=== PATIENT | male | born 1935 | race Caucasian/White ===

== ENCOUNTER 2023-07-24 08:54 | Outpatient (RCR) | payer MEDICARE, OTHER, SELFPAY ==
[2023-07-24 09:09] VITALS: BP 127/35; PULSE 72; RESP 18; TEMP 36.8; BMI 29.9
--- NOTE | 2023-07-24 12:01 | HP.PCM_ITS ---
History of Present Illness Date of Service: 07/24/23 Chief Complaint: Follow-up on buttocks bilateral redness and a small open area in the coccyx area. History of Wound: 88-year-old white male who has history of Alzheimer's. 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 She has been taking care of it with [employer]. It has not worked really well except because it is too drying. Basically hardly any it is about the size of a pea eraser head that is open and it is just surface so we will have her use the Aquacel cell extra and continue with A&D ointments to the adjoining areas [facility] Home Medications ascorbic acid (vitamin C) 500 mg tablet (C-500) 500 mg PO DAILY 07/24/23 [History Last Taken Unknown] aspirin 81 mg chewable tablet 1 tab PO DAILY 07/24/23 [History Last Taken Unknown] cholecalciferol (vitamin D3) 125 mcg (5,000 unit) tablet 125 mcg PO DAILY 07/24/23 [History Last Taken Unknown] donepezil 10 mg tablet (Aricept) 10 mg PO QHS 07/24/23 [History Last Taken Unknown] furosemide 20 mg tablet 20 mg PO DAILY PRN edema 07/24/23 [History Last Taken Unknown] hydrochlorothiazide 12.5 mg capsule 12.5 mg PO DAILY 07/24/23 [History Last Taken Unknown] insulin glargine 100 unit-lixisenatide 33 mcg/mL subcutaneous pen (Soliqua 100/33) 42 unit subcut DAILY 07/24/23 [History Last Taken Unknown] isosorbide mononitrate 30 mg tablet,extended release 24 hr 30 mg PO DAILY 07/24/23 [History Last Taken Unknown] levothyroxine 112 mcg capsule 112 mcg PO DAILY 07/24/23 [History Last Taken Unknown] lisinopril 20 mg tablet 20 mg PO DAILY 07/24/23 [History Last Taken Unknown] memantine 5 mg tablet 5 mg PO DAILY 07/24/23 [History Last Taken Unknown] pravastatin 40 mg tablet 40 mg PO DAILY 07/24/23 [History Last Taken Unknown] quetiapine 50 mg tablet 50 mg PO QHS 07/24/23 [History Last Taken Unknown] sertraline 50 mg tablet 50 mg PO DAILY 07/24/23 [History Last Taken Unknown] tamsulosin 0.4 mg capsule (Flomax) 0.4 mg PO DAILY 07/24/23 [History Last Taken Unknown] vitamin B complex (B Complex-Vitamin B12 tablet) 1 tab PO DAILY 07/24/23 [History Last Taken Unknown] zinc 25 mg tablet 25 mg PO DAILY 07/24/23 [History Last Taken Unknown] Allergy/AdvReac Type Severity Reaction Status Date / Time No Known Allergies Allergy Verified 07/24/23 09:17 ROS Constitutional Constitutional: Reports systems reviewed and no addt'l complaints, except as documented Eyes Eyes: Reports systems reviewed and no addt'l complaints, except as documented ENT HEENT: Reports systems reviewed and no addt'l complaints, except as documented Cardiovascular Cardiovascular: Reports systems reviewed and no addt'l complaints, except as documented Respiratory/Chest Respiratory/Chest: Reports systems reviewed and no addt'l complaints, except as documented Gastrointestinal Gastrointestinal: Reports systems reviewed and no addt'l complaints, except as documented Genitourinary Genitourinary: Reports systems reviewed and no addt'l complaints, except as documented Musculoskeletal Musculoskeletal: Reports systems reviewed and no addt'l complaints, except as documented Integumentary Integumentary: Reports wounds and other Details: Darkened erythema in the coccyx area looking like a yeasty fungal infection also has a small slit at the coccyx area that we will need attention. Neurologic Neurologic: Reports systems reviewed and no addt'l complaints, except as documented Psychiatric Psychiatric: Reports systems reviewed and no addt'l complaints, except as documented Endocrine Endocrinology: Reports systems reviewed and no addt'l complaints, except as documented Hematologic/Lymphatic Hematologic/Lymphatic: Reports systems reviewed and no addt'l complaints, except as documented Allergic/Immunologic Allergic/Immunologic: Reports systems reviewed and no addt'l complaints, except as documented Vital Signs Vital Signs Vital Signs: 07/24/23 09:09 Temperature 98.2 F Temperature Source Temporal Pulse Rate 72 Respiratory Rate 18 Blood Pressure 127/35 H Blood Pressure Mean 65 Blood Pressure Source Monitor Weight Weight: 191 lb 1.326 oz Body Mass Index (BMI) 29.9 Physical Exam Const oriented x3 General Appearance: cooperative Exam Limitations: no limitations HEENT normocephalic Resp normal respiratory effort Effort and Inspection: able to speak in complete sentences Auscultation: clear to auscultation bilaterally Cardio regular rate and regular rhythm Palpation: normal PMI Rate: regular rate Rhythm: regular rhythm Extremity normal to inspection General Extremity: normal exam except as noted Skin Skin Narrative: Darkened erythema at the coccyx area going into the buttocks cheeks. Also has an open area right in the coccyx area about the size of an eraser head Neuro oriented x3 Psych Appearance: grossly normal Speech: normal speech Thought Content: normal thought content Judgement: judgement good Debridement Note Debridement Note Wound debrided: Coccyx decubitus ulcer stage II Wound Grade/Stage: Stage II Type of Debridement: Selective debridement Anesthesia Used: 5% Lidocaine Gel Depth: Down to and including healthy tissue Percentage of wound debrided: 100 Instrument Used: 3mm curette Tissue Removed: Fibrin Severity: Limited To Skin Breakdown Amount of bleeding with debridement: Mild Bleeding Controlled with: Pressure Patient tolerated procedure: Patient tolerated procedure well Post-Debridement Measurements and Additional Note: Post-Debridement Measurements/Treatment KAIA - Nurse 1 - General Ulcer Assessment Start: 07/24/23 09:09 Freq: Status: Active Protocol: CHARLY Activity Type Activity Date Activity User E-sign Co-sign Detail Recorded Client Recorded Date Recorded By Document 07/24/23 09:09 DL [employer] 07/24/23 09:18 DL 07/24/23 09:09 WC - Today's Visit Information Type of service Initial Visit Arrival Mode Ambulatory Transfer Assistance None Patient Identification Verified (Name & Yes ) Patient Requires Transmission-Based No Precautions Finger Stick Blood Sugar(mg/dl) (if 97 indicated): Blood Sugar Stated by Patient Height and Weight Height 5 ft 7 in Weight 191 lb 1.326 oz Weight in Pounds 191.1 lbs Body Mass Index (BMI) 29.9 BMI Classification Overweight BSA - Rohit 1.98 Vital Signs Temperature (97.8 F-99.1 F) 98.2 F Temperature Source Temporal Pulse Rate (60-100) 72 Pulse Location Monitor Respiratory Rate (12-18) 18 Respiratory rate source Observation Blood Pressure (90/60-120/80) 127/35 H Blood Pressure Mean 65 Source Monitor Pain Scale: 0-10 Numeric Is Patient Pain Free? Yes KAIA - Nurse 1 - General Ulcer Measurement Start: 07/24/23 09:09 Freq: Status: Active Protocol: Activity Type Activity Date Activity User E-sign Co-sign Detail Recorded Client Recorded Date Recorded By Document 07/24/23 09:09 DL Desktop 07/24/23 09:18 DL 07/24/23 09:09 Wound Center Nurse 1 #1 Coccyx -Current Size (cm) - Length 0.1 -Current Size (cm) - Width 0.1 -Current Size (cm) - Depth 0.1 -Total Square Cm 0.01 -Photo Taken Yes -Exudate Amt None Present -Wound Margin Flat & Intact -Granulation Amt Large (67-100%) -Granulation Quality [place] -Slough/Fibrin No -Necrosis Amt None Present (0 %) -Structure Exposed N/A -Texture (Gali-wound Skin Appearance) Friable -Moisture (Gali-wound Skin Appearance) No Abnormality -Color (Gali-wound Skin Appearance) Ecchymosis -Temperature (Gali-wound Skin No Abnormality Appearance) (Pt Warm) -Tenderness on Palpation (Gali-wound No Skin Appearance) -Ulcer Cleansing Soap and Water -Foul Odor after Cleansing No -Anesthetic Used 5% Lidocaine Gel WC - Nurse 2 - General Ulcer CM Notes Start: 07/24/23 09:09 Freq: Status: Active Protocol: Activity Type Activity Date Activity User E-sign Co-sign Detail Recorded Client Recorded Date Recorded By Document 07/24/23 09:29 MW Desktop 07/24/23 09:33 MW 07/24/23 09:29 Wound Center Nurse 2 -Time 09:29 -Correct Patient Yes -Correct Side, Site, Position Yes -Correct Procedure Yes -Procedure Performed Yes -Type of Procedure Debridement -Clinical Debridement Subcutaneous -Tissue Removed Subcutaneous -Post Debridement (cm) - Length 0.3 -Post Debridement (cm) - Width 0.2 -Post Debridement (cm) - Depth 0.1 -Total Square (Post) (cm) 0.06 -Area of Debridement (cm) - Length 0.3 -Area of Debridement (cm) - Width 0.2 -Total Square (Area) (cm) 0.06 -Tunneling No -Undermining/Tunneling No -Circular Undermining No -Wound/Ulcer Outcome Not Healed -Ulcer Cleansing Rinsed/ Irrigated with Saline -Foul Odor after Cleansing No -Bioengineered Tissue No -Bleeding Controlled with Pressure -Treatment Response Procedure Not Tolerated Well -Offloading No -Debridement - Subq, 1st 20sq cm Yes Pain Scale: 0-10 Numeric Is Patient Pain Free? Yes WC - Nurse 3 - General Ulcer D/C NN Start: 07/24/23 09:09 Freq: Status: Active Protocol: Activity Type Activity Date Activity User E-sign Co-sign Detail Recorded Client Recorded Date Recorded By Document 07/24/23 09:46 DL Desktop 07/24/23 09:50 DL 07/24/23 09:46 Wound Care Center Nurse 3 #1 Coccyx -Ulcer Cleansing Rinsed/ Irrigated with Saline -Foul Odor after Cleansing No -Primary Dressing Applied Aquacel Extra, Mepilex Border -Aquacel Extra 1 -Mepilex Border 1 Treatment Response Procedure Tolerated Well Pain Scale: 0-10 Numeric Is Patient Pain Free? Yes WC - Visit Discharge Discharge Condition Stable Ambulatory Status Ambulatory Transportation Private Auto Accompanied by Facility Type Home Health Orders Sent Yes Assessment/Plan Assessment/Plan (1) Decubitus ulcer of coccyx, stage 2: CODE(S): L89.152 - Pressure ulcer of sacral region, stage 2 PLAN: Wash area with antibacterial soap such as Dial Apply Aquacel extra to wound base moistened and cover with an absorbent dressing. Use A&E ointment to the adjoining areas of skin Take fluconazole 100 mg every day for a month Follow-up in 1 week (2) Alzheimer's dementia: CODE(S): G30.9 - Alzheimer's disease, unspecified; F02.80 - Dementia in other diseases classified elsewhere, unspecified severity, without behavioral disturbance, psychotic disturbance, mood disturbance, and anxiety QUALIFIERS: Alzheimer's disease onset: unspecified onset Dementia severity: severe Dementia behavioral or psychological symptom: with other behavioral disturbance Qualified Code(s): G30.9 - Alzheimer's disease, unspecified; F02.C18 - Dementia in other diseases classified elsewhere, severe, with other behavioral disturbance
== END 2023-07-24 23:59 | disposition home or self-care (01) ==
LOC: WC 08:54
PROVIDERS: PCP Nurse Practitioner Family; Referring Provider Nurse Practitioner Family; Visit Provider Nurse Practitioner
DX: L89.152 Pressure ulcer of sacral region, stage 2 (principal); G30.9 Alzheimer's disease, unspecified; F02.80 Dementia in other diseases classified elsewhere, unspecified severity, without behavioral disturbance, psychotic disturbance, mood disturbance, and anxiety; Z79.4 Long term (current) use of insulin; Z79.82 Long term (current) use of aspirin; Z79.890 Hormone replacement therapy; Z79.899 Other long term (current) drug therapy
CPT/HCPCS: 11042; 99203; G0463

== ENCOUNTER 2023-07-31 08:38 | Outpatient (RCR) | payer MEDICARE, OTHER, SELFPAY ==
[2023-07-25 01:00] VITALS: BP 127/35; PULSE 72; RESP 18; TEMP 36.8; BMI 29.9
[2023-07-31 08:42] VITALS: BP 130/38; PULSE 72; RESP 16; TEMP 36.7; BMI 29.9
--- NOTE | 2023-07-31 09:48 | PCM.WC.PN ---
History of Present Illness Date of Service: 07/31/23 Chief Complaint: Follow-up on buttocks bilateral redness and a small open area in the coccyx area. History of Wound: 88-year-old white male who has history of Alzheimer's. 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 She has been taking care of it with [employer]. It has not worked really well except because it is too drying. Basically hardly any it is about the size of a pea eraser head that is open and it is just surface so we will have her use the Aquacel cell extra and continue with A&D ointments to the adjoining areas Progress of Wound: The area and the sacrum is healed patient will be discharged from the wound center. He is also on fluconazole for his fungal and that looks better it starting to fade. Subjective Subjective is pleased with outcomes I suggested she continue with dressings for another week she did obtain a foam cushion for him to sit up on for pressure reducing. Will suggest she go on [employer] just buy a gel cushion to her like $25 family was agreeable. Objective Data Objective Data No sign of infection wound area well-healed fungal area fading and smaller patient will be discharged from the wound center and can follow-up as needed Vital Signs: Vital Signs Temp Pulse Resp BP O2 Del Method 98.1 F 72 16 130/38 H Room Air 07/31/23 08:42 07/31/23 08:42 07/31/23 08:42 07/31/23 08:42 07/31/23 08:42 Oxygen Delivery Method Room Air Weight: 191 lb 1.326 oz Body Mass Index (BMI) 29.9 Physical Exam Const oriented x3 General Appearance: cooperative Exam Limitations: no limitations HEENT normocephalic Resp normal respiratory effort Effort and Inspection: able to speak in complete sentences Auscultation: clear to auscultation bilaterally Cardio regular rate and regular rhythm Palpation: normal PMI Rate: regular rate Rhythm: regular rhythm Extremity normal to inspection General Extremity: normal exam except as noted Skin Skin Narrative: Darkened erythema at the coccyx area going into the buttocks cheeks. Also has an open area right in the coccyx area about the size of an eraser head Neuro oriented x3 Psych Appearance: grossly normal Speech: normal speech Thought Content: normal thought content Judgement: judgement good Debridement Note Debridement Note No debridement was completed: No debridement was completed today Post-Debridement Measurements and Additional Note: Post-Debridement Measurements/Treatment - Nurse 1 - General Ulcer Assessment Start: 07/31/23 08:42 Freq: Status: Active Protocol: CHARLY Activity Type Activity Date Activity User E-sign Co-sign Detail Recorded Client Recorded Date Recorded By Document 07/31/23 08:42 [facility] Desktop 07/31/23 08:54 [facility] 07/31/23 08:42 WC - Today's Visit Information Type of service Follow-up Visit (Physician/CLEARING HAND ) Arrival Mode Ambulatory Transfer Assistance None Patient Identification Verified (Name & Yes ) Patient Requires Transmission-Based No Precautions Height and Weight Body Mass Index (BMI) 29.9 BMI Classification Overweight Vital Signs Temperature (97.8 F-99.1 F) 98.1 F Temperature Source Temporal Pulse Rate (60-100) 72 Pulse Location Monitor Respiratory Rate (12-18) 16 Respiratory rate source Observation Oxygen Delivery Method Room Air Blood Pressure (90/60-120/80) 130/38 H Blood Pressure Mean (mm Hg) 68 Source Monitor Position Sitting History Since Last Visit- (Skip if this is Patient's initial visit) Have you changed medications since your No last visit? Any new allergies or adverse reactions No Had a fall/change in ADL's that may No increase risk of falls Signs or symptoms of abuse and/or No neglect since last visit Have you been in the hospital since your No last visit? Has dressing in place as prescribed No Has compression in place as prescribed N/A Has offloadiing in place as prescribed N/A Experienced any changes in pain level or No management Left Footwear Slipper Right Footwear Slipper Pain Scale: 0-10 Numeric Is Patient Pain Free? Yes - Nurse 1 - General Ulcer Measurement Start: 07/31/23 08:42 Freq: Status: Active Protocol: Activity Type Activity Date Activity User E-sign Co-sign Detail Recorded Client Recorded Date Recorded By Document 07/31/23 08:42 [facility] [email or web address] 07/31/23 08:54 [facility] 07/31/23 08:42 Wound Center Nurse 1 #1 Coccyx -Combined with other wound No -Current Size (cm) - Length 0.1 -Current Size (cm) - Width 0.1 -Current Size (cm) - Depth 0.1 -Total Square Cm 0.01 -Date of Last Picture (Recall this 07/31/23 field) -Photo Taken Yes -Epithelialization Medium 34-66% -Tunneling No -Undermining/Tunneling No -Circular Undermining No -Exudate Amt None Present -Wound Margin Flat & Intact -Granulation Amt Large (67-100%) -Granulation Quality Red -Slough/Fibrin No -Necrosis Amt None Present (0 %) -Texture (Gali-wound Skin Appearance) Assessed, Scarring -Moisture (Gali-wound Skin Appearance) Assessed -Color (Gali-wound Skin Appearance) Assessed -Temperature (Gali-wound Skin No Abnormality Appearance) (Pt Warm) -Tenderness on Palpation (Gali-wound No Skin Appearance) -Ulcer Cleansing Rinsed/ Irrigated with Saline -Foul Odor after Cleansing No -Anesthetic Used 5% Lidocaine Gel - Nurse 2 - General Ulcer CM Notes Start: 07/31/23 08:42 Freq: Status: Active Protocol: Activity Type Activity Date Activity User E-sign Co-sign Detail Recorded Client Recorded Date Recorded By Document 07/31/23 08:57 MW Desktop 07/31/23 08:59 MW 07/31/23 08:57 Wound Center Nurse 2 -Time 08:58 -Correct Patient Yes -Correct Side, Site, Position Yes -Correct Procedure Yes -Procedure Performed No -Post Debridement (cm) - Length 0 -Post Debridement (cm) - Width 0 -Post Debridement (cm) - Depth 0 -Total Square (Post) (cm) 0 -Wound/Ulcer Outcome Healed- Epithelialized Pain Scale: 0-10 Numeric Is Patient Pain Free? Yes - Nurse 3 - General Ulcer D/C NN Start: 07/31/23 08:42 Freq: Status: Active Protocol: Activity Type Activity Date Activity User E-sign Co-sign Detail Recorded Client Recorded Date Recorded By Document 07/31/23 09:01 MW Desktop 07/31/23 09:03 MW 07/31/23 09:01 Wound Care Center Nurse 3 #1 Coccyx -Ulcer Cleansing Not Cleansed -Foul Odor after Cleansing No -Negative Pressure Wound Therapy N/A -Primary Dressing Applied Aquacel Extra, Mepilex Border -Aquacel Extra 1 -Mepilex Border 1 Treatment Response Procedure Tolerated Well Pain Scale: 0-10 Numeric Is Patient Pain Free? Yes Teaching: Wound Center Discharge Instructions -Person Taught Patient -Teaching Method Discussion, Demonstration -Response to teaching Verbalize understanding WC - Visit Discharge Discharge Condition Stable Ambulatory Status Ambulatory Transportation Private Auto Accompanied by Medication Reconcilliation completed & No provided to patient/care provider Clinical Summary of Care Provided Yes Notes: Healed discharged from clinic Assessment/Plan Assessment/Plan (1) Decubitus ulcer of coccyx, stage 2: CODE(S): L89.152 - Pressure ulcer of sacral region, stage 2 PLAN: Patient will be discharged from the wound center follow-up as needed She may continue the dressing changes for another week just to pad and protect him because of the position continue wearing a foam pad to sit upon or gel cushion Continue finishing the fluconazole for the month (2) Alzheimer's dementia: CODE(S): G30.9 - Alzheimer's disease, unspecified; F02.80 - Dementia in other diseases classified elsewhere, unspecified severity, without behavioral disturbance, psychotic disturbance, mood disturbance, and anxiety QUALIFIERS: Alzheimer's disease onset: unspecified onset Dementia severity: severe Dementia behavioral or psychological symptom: with other behavioral disturbance Qualified Code(s): G30.9 - Alzheimer's disease, unspecified; F02.C18 - Dementia in other diseases classified elsewhere, severe, with other behavioral disturbance
== END 2023-08-05 15:37 | disposition home or self-care (01) ==
LOC: WC 08:38
PROVIDERS: PCP Nurse Practitioner Family; Referring Provider Nurse Practitioner Family; Visit Provider Nurse Practitioner
DX: Z09 Encounter for follow-up examination after completed treatment for conditions other than malignant neoplasm (principal); G30.9 Alzheimer's disease, unspecified; F02.80 Dementia in other diseases classified elsewhere, unspecified severity, without behavioral disturbance, psychotic disturbance, mood disturbance, and anxiety; Z79.4 Long term (current) use of insulin; Z79.82 Long term (current) use of aspirin; Z79.890 Hormone replacement therapy; Z79.899 Other long term (current) drug therapy
CPT/HCPCS: 99213; G0463